=== PATIENT | female | born 1945 | race Caucasian/White ===

== ENCOUNTER 2018-08-29 20:56 | Inpatient (IN) | payer OTHER ==
--- NOTE | 2018-08-29 21:05 | EDPHY ---
H & P Stated Complaint: Seen at urgent care, concerned for a-fib, dx w/upper respiratory - Personal History Tetanus Vaccine Date: 2018 - Medical/Surgical History Hx Asthma: No Hx Chronic Respiratory Disease: No Hx Diabetes: No Hx Cardiac Disease: Yes Hx Renal Disease: No Hx Cirrhosis: No Hx Alcoholism: No Hx HIV/AIDS: No Hx Splenectomy or Spleen Trauma: No Other PMH: A-fib, - Social History Smoking Status: Never smoked Time Seen by Provider: 08/29/18 21:04 Constitutional: Initial Vital Signs Temperature (C) 36.7 C 08/29/18 20:58 Heart Rate 93 08/29/18 20:58 Respiratory Rate 19 08/29/18 20:58 Blood Pressure 187/89 H 08/29/18 20:58 O2 Sat (%) 95 08/29/18 20:58 O2 Delivery Mode [Post Nasal Cannula Procedure 4th] O2 Delivery Mode [Post Nasal Cannula Procedure 3rd] O2 Delivery Mode [Post Nasal Cannula Procedure 2nd] O2 Delivery Mode [Post Non-Rebreather Mask Procedure 1st] O2 Delivery Mode [Procedural Non-Rebreather Mask 1st] O2 Delivery Mode [.Immediate Non-Rebreather Mask Pre-Procedure] O2 Delivery Mode Room Air O2 (L/minute) [Post Procedure 3 4th] O2 (L/minute) [Post Procedure 3 3rd] O2 (L/minute) [Post Procedure 4 2nd] O2 (L/minute) [Post Procedure 15 1st] O2 (L/minute) [Procedural 1st] 15 O2 (L/minute) [.Immediate Pre- 15 Procedure] O2 (L/minute) 2 Allergies/Adverse Reactions: Penicillins Allergy (Verified 08/29/18 21:00) pneumococcal vaccine Allergy (Verified 08/29/18 21:00) Sulfa (Sulfonamide Antibiotics) Allergy (Verified 08/29/18 21:00) Home Medications: Medication Instructions Recorded Metoprolol ER-Hctz 100-12.5 mg 08/29/18 Tikosyn 0.5 MG (*) 08/29/18 Xarelto 08/29/18 Medical Decision Making ED Course/Re-evaluation: CHIEF COMPLAINT: "Atrial fibrillation" HISTORY OF PRESENT ILLNESS: The patient is an anticoagulated (Xarelto) 72 y/o female with a history of atrial fibrillation requiring cardioversions and ablations complaining of being in "atrial fibrillation" today. The patient recently flew from [place] to [place] Today she noticed that she was shaky and felt like she was in atrial fibrillation today. She went to an urgent care, had a chest x-ray, and was diagnosed with an upper respiratory virus. However, since she felt like she was still in atrial fibrillation, she decided to present to the emergency department. Due to her atrial fibrillation she has had 3 cardioversions and ablations, which resolved the a-fib. She is currently on Tikosyn, Metoprolol and Xarelto to control the atrial fibrillation. No fever, headache, body aches, lightheadedness, chest pain, shortness of breath, cough, abdominal pain, urinary or bowel complaints, numbness, paresthesias. REVIEW OF SYSTEMS: A comprehensive 10 system review of systems is otherwise negative aside from elements mentioned in the history of present illness and medical decision making. PHYSICAL EXAM: HR, BP, O2 Sat, RR. Temp noted General Appearance: Alert, well hydrated, appropriate, and non-toxic appearing. Head: Atraumatic without scalp tenderness or obvious injury Eyes: Pupils equal, round, reactive to light and accommodation, EOMI, no trauma , no injection. Ears: Clear bilaterally, no perforation, normal landmarks Nose: Atraumatic, no rhinorrhea, clear. Throat: There is no erythema or exudates, no lesions, normal tonsils, mucus membranes moist. Neck: Supple, 2+ carotid upstroke, nontender, no lymphadenopathy. Respiratory: No retractions, no distress, no wheezes, and no accessory muscle use. Lungs are clear to auscultation bilaterally. Cardiovascular: Irregularly irregular rhythm consistent with A-fib, no murmurs , rubs, or gallops. Bilateral carotid, radial, dorsalis pedis, and posterior tibial pulses intact. Good capillary refill all extremities. Gastrointestinal: Abdomen is soft, nontender, non-distended, no masses, no rebound, no guarding, no peritoneal signs. Musculoskeletal: Normal active ROM of all extremities, atraumatic. Neurological: Alert, appropriate, and interactive. The patient has normal DTRs and non-focal cranial nerves, motor, sensory, and cerebellar exam. Skin: No rashes, good turgor, no nodules on palpation. Past medical history: Atrial fibrillation Past surgical history: Cardioversion, cardiac ablation Family history: Denies Social history: Visiting son in [place], at bedside, retired DIAGNOSTICS/PROCEDURES/CRITICAL CARE TIME: EKG: The 12 lead EKG was interpreted by myself as intermittent atrial fibrillation/flutter with a rate of 110. See hard copy and/or "tracemaster" electronic copy for interpretation. Procedure: Electrical Cardioversion. Indication: Dysrhythmia. Risks, benefits, alternatives discussed with the patient and consent obtained. The patient was on a continuous nuclear monitoring technician, with airway equipment at the bedside. The patient was on continuous pulse oximetry and passive CO2 monitor. The cardioversion was performed with 200 joules biphasic synchronized current. The cardioversion was successful. The patient tolerated the procedure well with no complications. The procedure was performed by myself. Procedure: Conscious sedation. Indication: Electrical Cardioversion for atrial fibrillation The patient is an appropriate candidate to tolerate procedural sedation. The patient's vitals signs and mental status are appropriate. The risks, benefits and alternatives of the sedation were discussed with the patient. The patient is ASA classification 1. The patient's Mallampati airway score was 1 and the patient did meet the 3-3-2 airway measurements. A time out was completed. The patient was sedated with 20mg IV Ketamine and 70mg IV Propofol. The patient was monitored with continuous pulse oximetry, monitoring tech and end tidal CO2. There were no complications and no significant hypoxemia. I performed both the sedation and the procedure. The total time I spent at the bedside during the procedural sedation was 20 minutes. The patient was examined after the procedural sedation and has returned to their pre-sedation baseline with normal vital signs and a normal examination. Post cardioversion EKG: The 12 lead EKG was interpreted by myself as as sinus rhythm with a rate of 92. See hard copy and/or "tracemaster" electronic copy for interpretation. DIFFERENTIAL DIAGNOSIS: The differential diagnosis for the patient's irregularly irregular tachycardia included but was not limited to various causes of sinus tachycardia such as dehydration and medicines, SVT, atrial flutter, atrial fibrillation, pulmonary causes. MEDICAL DECISION MAKING: The patient is an anticoagulated (Xarelto) 72 y/o female with a history of atrial fibrillation requiring cardioversions and ablations presenting with being in "atrial fibrillation" today. The patient recently flew from [place] to [place] Today she noticed that she was shaky and felt like she was in atrial fibrillation today. Due to her atrial fibrillation she has had 3 cardioversions and ablations, which resolved the a-fib. She is currently on Tikosyn, Metoprolol and Xarelto to control the atrial fibrillation. On exam she has an irregularly irregular heart rate consistent with atrial fibrillation. Labs and EKG ordered. I discussed the risks and benefits associated with a cardioversion. She is a good candidate for cardioversion as she is anticoagulated and has been successfully cardioverted in the past. She is comfortable with plan for cardioversion. 2113: I interpreted patient's EKG as intermittent atrial fibrillation/flutter with a rate of 110. Patient may not need a cardioversion since the afib/flutter is intermittent. 2119: Reassessed patient and discussed EKG findings. She reports that she feels the same as when she is in atrial fibrillation. I have offered her admission, but she would like to have the cardioversion. 2124: Patient has been transferred to trauma room 1 for the electrical cardioversion. 2134: BP: 172/72, HR: 110, O2Sats: 100%. 2137: Shock delivered. Patient has a good CO2 wave form and a decreased heart rate of 91. 5mg IV Lopressor administered. 2141: I interpreted patient's EKG as sinus rhythm with a rate of 92 2146: Patient is becoming more awake after the cardioversion. She states she is feeling better. We will continue to observer her. 2156: Reassessed patient after cardioversion. She continues to feel better. HR: 72, P: 137/54. Patient's labs are also unremarkable. We will road test her to see if she is ready to be discharged. 2229: Patient continues to drop her O2Sats into the high 80's when she walks. I suspect this is due to her upper respiratory infection. If her O2Sats do not improve she will need to be admitted. 2230: Patient care turned over to Dr. Hernandez at shift change. (Cash Castillo) 2315- Patient persistently hypoxic here in the emergency department. She is requiring 2 L of oxygen to maintain saturations in the low 90s. As she feels mildly short of breath. I consulted with Dr. Joseph and we will admit the patient. (Carmela Hernandez) - Data Points Laboratory Results: Laboratory Results 08/29/18 21:15 08/29/18 21:15 08/29/18 08/29/18 08/29/18 21:20 21:15 21:15 WBC 7.94 10^3/uL 10^3/uL (3.80-9.50) RBC 4.12 10^6/uL L 10^6/uL (4.18-5.33) Hgb 13.4 g/dL g/dL (12.6-16.3) Hct 38.3 % % (38.0-47.0) MCV 93.0 fL fL (81.5-99.8) MCH 32.5 pg pg (27.9-34.1) MCHC 35.0 g/dL g/dL (32.4-36.7) RDW 12.5 % % (11.5-15.2) Plt Count 260 10^3/uL 10^3/uL (150-400) MPV 9.5 fL fL (8.7-11.7) Neut % (Auto) 60.4 % % (39.3-74.2) Lymph % (Auto) 29.6 % % (15.0-45.0) [place] % (Auto) 8.6 % % (4.5-13.0) Eos % (Auto) 0.4 % L % (0.6-7.6) Baso % (Auto) 0.5 % % (0.3-1.7) Nucleat RBC Rel Count 0.0 % % (0.0-0.2) Absolute Neuts (auto) 4.80 10^3/uL 10^3/uL (1.70-6.50) Absolute Lymphs (auto) 2.35 10^3/uL 10^3/uL (1.00-3.00) Absolute Monos (auto) 0.68 10^3/uL 10^3/uL (0.30-0.80) Absolute Eos (auto) 0.03 10^3/uL 10^3/uL (0.03-0.40) Absolute Basos (auto) 0.04 10^3/uL 10^3/uL (0.02-0.10) Absolute Nucleated RBC 0.00 10^3/uL 10^3/uL (0-0.01) Immature Gran % 0.5 % % (0.0-1.1) Immature Gran # 0.04 10^3/uL 10^3/uL (0.00-0.10) Sodium 131 mEq/L L mEq/L (135-145) Potassium 3.5 mEq/L mEq/L (3.5-5.2) Chloride 94 mEq/L L mEq/L (97-110) Carbon Dioxide 24 mEq/l mEq/l (22-31) Anion Gap 13 mEq/L mEq/L (6-14) BUN 13 mg/dL mg/dL (7-23) Creatinine 0.6 mg/dL mg/dL (0.6-1.0) Estimated GFR > 60 Glucose 128 mg/dL H mg/dL (70-100) Calcium 9.8 mg/dL mg/dL (8.5-10.4) POC Troponin I 0.01 ng/mL ng/mL (0.00-0.08) NT-Pro-B Natriuret Pep 08/29/18 21:12 WBC RBC Hgb Hct MCV MCH MCHC RDW Plt Count MPV Neut % (Auto) Lymph % (Auto) [place] % (Auto) Eos % (Auto) Baso % (Auto) Nucleat RBC Rel Count Absolute Neuts (auto) Absolute Lymphs (auto) Absolute Monos (auto) Absolute Eos (auto) Absolute Basos (auto) Absolute Nucleated RBC Immature Gran % Immature Gran # Sodium Potassium Chloride Carbon Dioxide Anion Gap BUN Creatinine Estimated GFR Glucose Calcium POC Troponin I NT-Pro-B Natriuret Pep Pending Medications Given: Discontinued Medications Albuterol/Ipratropium (Duoneb) 3 ml IH EDNOW ONE Stop: 08/29/18 22:39 Last Admin: 08/29/18 22:39 Dose: 3 ml Ketamine HCl (Ketamine) 20 mg IVP EDNOW ONE Stop: 08/29/18 22:19 Last Admin: 08/29/18 21:25 Dose: 20 mg Metoprolol Tartrate (Lopressor Injection) 5 mg IVP EDNOW ONE Stop: 08/29/18 22:22 Last Admin: 08/29/18 21:25 Dose: 5 mg Propofol (Diprivan) 70 mg IVP EDNOW ONE Stop: 08/29/18 22:20 Last Admin: 08/29/18 21:25 Dose: 70 mg Point of Care Test Results: Chemistry 08/29/18 21:20 POC Troponin I 0.01 ng/mL ng/mL (0.00-0.08) Departure - Departure Disposition: [facility] Inpatient Acute Clinical Impression: Encounter for cardioversion procedure, Hypoxia Atrial fibrillation Qualifiers: Atrial fibrillation type: unspecified Qualified Code(s): I48.91 - Unspecified atrial fibrillation Atrial flutter Qualifiers: Atrial flutter type: unspecified Qualified Code(s): I48.92 - Unspecified atrial flutter Condition: Fair Instructions: Atrial Flutter (ED), A-fib (Atrial Fibrillation) (ED), Cardioversion (DC) Additional Instructions: 1. Follow-up with your primary doctor within 72 hours. 2. Return to the Emergency Department for fever, chest pain, shortness of breath , increasing pain or other worsening of condition. 3. Follow up with a county agent for further testing, as soon as possible, within one week. Referrals: JT JOHNSON MD [Other] - As per Instructions Report Scribed for: Cash Castillo Report Scribed by: Gilda Cordero Date of Report: 08/29/18 Time of Report: 21:06
[2018-08-29] MEDS ORDERED: KETAMINE 200 MG/20 ML VIAL ONE (21:30)
[2018-08-29] MEDS ORDERED: PROPOFOL 200 MG/20 ML VIAL ONE (21:31)
[2018-08-29 21:32] LABS: PLATELET COUNT 260 10^3/uL (150-400)
[2018-08-29] MEDS ORDERED: METOPROLOL TARTRATE 5 MG/5 ML INJ ONE (21:39)
[2018-08-29] MEDS ORDERED: KETAMINE 500 MG/10 ML VIAL IVP ONE (22:18)
[2018-08-29] MEDS ORDERED: PROPOFOL 200 MG/20 ML VIAL IVP ONE (22:19)
[2018-08-29] MEDS ORDERED: METOPROLOL TARTRATE 5 MG/5 ML INJ IVP ONE (22:21)
[2018-08-29] MEDS ORDERED: IPRATROPIUM/ALBUTEROL 3 ML DEYVIAL ONE (22:36)
[2018-08-29] MEDS ORDERED: IPRATROPIUM/ALBUTEROL 3 ML DEYVIAL IH ONE (22:38)
[2018-08-29] MEDS ORDERED: ACETAMINOPHEN 325 MG TAB PO PRN (23:13)
[2018-08-29] MEDS ORDERED: ONDANSETRON DISINTEGRATING 4 MG TAB PO PRN (23:13)
[2018-08-29] MEDS ORDERED: ALBUTEROL 3 ML DEYVIAL IH PRN (23:13)
[2018-08-29] MEDS ORDERED: ONDANSETRON 4 MG/2 ML VIAL IVP PRN (23:13)
--- NOTE | 2018-08-29 23:53 | PDGENHP ---
History and Physical - Chief Complaint Palpitations, shortness of breath - History of Present Illness 72 yo F w/ hx of AF presents with shortness of breath and palpitations. The patient has had a URI for several weeks. She has been treated with a course of azithromycin over the last 5 days. Today she noted palpitations, malaise, and fatigue, which are usually signs that she has converted to AF. She was noted to be in AF here and cardioverted back to NSR. She is anticoagulated with Xarelto. After cardioversion she feels improved but remains mildly hypoxic. I hear mild expiratory wheezing during my lung exam. She was started on prednisone earlier today for presumed RAD exacerbation. She has no formal prior hx of asthma. Case discussed with ED physician Dr. Hernandez; records reviewed and summarized above. History Information - Allergies/Home Medication List Allergies/Adverse Reactions: Penicillins Allergy (Verified 08/29/18 21:00) pneumococcal vaccine Allergy (Verified 08/29/18 21:00) Sulfa (Sulfonamide Antibiotics) Allergy (Verified 08/29/18 21:00) Home Medications: Metoprolol ER-Hctz 100-12.5 mg 08/29/18 [Last Taken Unknown] Tikosyn 0.5 MG (*) 08/29/18 [Last Taken Unknown] Xarelto 08/29/18 [Last Taken Unknown] I have personally reviewed and updated: family history, medical history - Past Medical History atrial fibrillation - Surgical History Reports: hernia repair Additional surgical history: - Family History Positive for: CAD - Social History Smoking Status: Never smoked Review of Systems Review of Systems: ROS: 10pt was reviewed & negative except for what was stated in HPI & below Physical Exam Physical Exam: Temp Pulse Resp BP Pulse Ox 36.9 C 83 16 154/64 H 94 08/29/18 21:50 08/29/18 23:10 08/29/18 23:10 08/29/18 23:10 08/29/18 23:10 Constitutional: no apparent distress, not in pain Eyes: PERRL, EOMI Ears, Nose, Mouth, Throat: moist mucous membranes, no oral mucosal ulcers Cardiovascular: regular rate and rhythym, no murmur, rub, or gallop Respiratory: no respiratory distress, expiratory wheeze Gastrointestinal: normoactive bowel sounds, soft, non-tender abdomen Skin: warm, normal color Neurologic: AAOx3, CN II-XII Intact Psychiatric: interacting appropriately, not anxious Lab Data & Imaging Review 08/29/18 21:15 08/29/18 21:15 WBC 7.94 10^3/uL (3.80-9.50) 08/29/18 21:15 RBC 4.12 10^6/uL (4.18-5.33) L 08/29/18 21:15 Hgb 13.4 g/dL (12.6-16.3) 08/29/18 21:15 Hct 38.3 % (38.0-47.0) 08/29/18 21:15 MCV 93.0 fL (81.5-99.8) 08/29/18 21:15 MCH 32.5 pg (27.9-34.1) 08/29/18 21:15 MCHC 35.0 g/dL (32.4-36.7) 08/29/18 21:15 RDW 12.5 % (11.5-15.2) 08/29/18 21:15 Plt Count 260 10^3/uL (150-400) 08/29/18 21:15 MPV 9.5 fL (8.7-11.7) 08/29/18 21:15 Neut % (Auto) 60.4 % (39.3-74.2) 08/29/18 21:15 Lymph % (Auto) 29.6 % (15.0-45.0) 08/29/18 21:15 [place] % (Auto) 8.6 % (4.5-13.0) 08/29/18 21:15 Eos % (Auto) 0.4 % (0.6-7.6) L 08/29/18 21:15 Baso % (Auto) 0.5 % (0.3-1.7) 08/29/18 21:15 Nucleat RBC Rel Count 0.0 % (0.0-0.2) 08/29/18 21:15 Absolute Neuts (auto) 4.80 10^3/uL (1.70-6.50) 08/29/18 21:15 Absolute Lymphs (auto) 2.35 10^3/uL (1.00-3.00) 08/29/18 21:15 Absolute Monos (auto) 0.68 10^3/uL (0.30-0.80) 08/29/18 21:15 Absolute Eos (auto) 0.03 10^3/uL (0.03-0.40) 08/29/18 21:15 Absolute Basos (auto) 0.04 10^3/uL (0.02-0.10) 08/29/18 21:15 Absolute Nucleated RBC 0.00 10^3/uL (0-0.01) 08/29/18 21:15 Immature Gran % 0.5 % (0.0-1.1) 08/29/18 21:15 Immature Gran # 0.04 10^3/uL (0.00-0.10) 08/29/18 21:15 Sodium 131 mEq/L (135-145) L 08/29/18 21:15 Potassium 3.5 mEq/L (3.5-5.2) 08/29/18 21:15 Chloride 94 mEq/L (97-110) L 08/29/18 21:15 Carbon Dioxide 24 mEq/l (22-31) 08/29/18 21:15 Anion Gap 13 mEq/L (6-14) 08/29/18 21:15 BUN 13 mg/dL (7-23) 08/29/18 21:15 Creatinine 0.6 mg/dL (0.6-1.0) 08/29/18 21:15 Estimated GFR > 60 08/29/18 21:15 Glucose 128 mg/dL (70-100) H 08/29/18 21:15 Calcium 9.8 mg/dL (8.5-10.4) 08/29/18 21:15 POC Troponin I 0.01 ng/mL (0.00-0.08) 08/29/18 21:20 NT-Pro-B Natriuret Pep 153 pg/mL (0-125) H 08/29/18 21:12 Visualized and Interpreted Chest x-ray results: Yes Chest X-Ray results: no infiltrate Visualized and Interpreted EKG results: Yes EKG Interpretation: Positive for: normal sinsus rhythm Assessment & Plan Assessment: 72 yo F w/ hx of AF presents w/ hypoxia due to RAD exacerbation and AF s/p cardioversion. Plan: 1. Paroxysmal Atrial fibrillation - The patient is very symptomatic when she converts to AF. She presented today with fatigue, malaise, and palpitations, which are her usual symptoms. She is on Tikosyn and metoprolol to prevent these issues. She is anticoagulated with Xarelto. I suspect hypoxia due to RAD exacerbation and travel to altitude triggered her AF. - Observe in PCU - Now s/p cardioversion and in NSR - Continue home medications pending reconciliation - Monitor on telemetry 2. URI w/ RAD exacerbation - Patient has no formal asthma history but does report prior need for steroids during URI. She has had a URI for several weeks and demonstrates expiratory wheezing during my examination. CXR (personally reviewed/interpreted) does nto demonstrates any infiltrates. - S/p 5 days azithromycin - Prednisone 40 mg qD - Albuterol PRN 3. Hypoxia - Mild, likely due to RAD and travel [place] - Acute management as above - Continue O2 PRN - Incentive spirometry ordered 4. Hyponatremia - Mild, unclear etiology; repeat BMP in the AM. Diet - Regular Code - Full Ppx - Xarelto Dispo - Admit under observation status
[2018-08-30 04:27] LABS: PLATELET COUNT 263 10^3/uL (150-400)
[2018-08-30] MEDS: predniSONE 20 MG TAB PO SCH (09:34)
[2018-08-30] MEDS ORDERED: ALBUTEROL 60 PUFFS/8 GM MDI IH PRN (11:44)
--- NOTE | 2018-08-30 11:49 | ASMTCMCOM ---
CM Note CM Note Notes: Pts case discussed in tx rounds. Pt is a 72 y/o female admitted for SOB. Pt will most likely d/c independent when medically stable. No therapies ordered at this time. CM available for changes. Plan: Independent Date Signed: 08/30/2018 11:49 AM Electronically Signed By:TERRENCE Manning
[2018-08-30] MEDS: RIVAROXABAN 20 MG TAB PO SCH (12:55)
[2018-08-30] MEDS: METOPROLOL SUCCINATE XR 100 MG TAB PO SCH (12:55)
[2018-08-30] MEDS: DULoxetine 30 MG CAP PO SCH (12:56)
[2018-08-30] MEDS: DOFETILIDE 0.25 MG CAP PO SCH ×2 (12:56→21:01)
[2018-08-30] MEDS: MAGNESIUM OXIDE 400 MG TAB PO SCH (12:57)
--- NOTE | 2018-08-30 15:55 | HOSPPROG ---
Hospitalist Progress Note Assessment/Plan: 72 yo F w/ hx of AF presents w/ hypoxia due to RAD exacerbation and AF s/p cardioversion. #Acute hypoxia: D/t viral illness/bronchospasm and altitude. Very dyspneic with minimal movement. Continue O2 PRN. #URI w/ RAD exacerbation: No pna on cxr (personally reviewed). S/p 5 days azithro. Continue pred 40 qd. Schedule xopanex neb q8. #pAF: S/p cardioversion in ED, remained in sinus all day. Continue home tikosyn , metoprolol. She is anticoagulated with xarelto. #Hyponatremia: Mild, resolved. #Depression: Home meds Diet - Regular Code - Full Ppx - Xarelto Dispo - Switch to inpatient for ongoing hypoxia and symptoms. ADD tomorrow Subjective: Very short of breath when going to bathroom. Resp rate went up to almost 40 with some hypoxia. No chest pain. No fevers. Some cough. No afib on tele. Objective: Vital Signs Temp Pulse Resp BP Pulse Ox 36.7 C 84 40 H 155/72 H 89 L 08/30/18 11:01 08/30/18 11:01 08/30/18 14:29 08/30/18 11:01 08/30/18 14:29 Laboratory Results 08/30/18 03:20 08/30/18 03:20 08/29/18 08/30/18 08/31/18 05:59 05:59 05:59 Intake Total 500 Balance 500 - Physical Exam Constitutional: no apparent distress, appears nourished, not in pain Eyes: PERRL, anicteric sclera, EOMI Ears, Nose, Mouth, Throat: moist mucous membranes, hearing normal, ears appear normal, no oral mucosal ulcers Cardiovascular: regular rate and rhythym, no murmur, rub, or gallop, No edema Respiratory: no respiratory distress, no rales or rhonchi, clear to auscultation Gastrointestinal: normoactive bowel sounds, soft, non-tender abdomen, no palpable masses Genitourinary: no bladder fullness, no bladder tenderness, no renal bruits Skin: no rashes or abrasions, no fluctuance, no induration Musculoskeletal: full muscle strength, no muscle tenderness, normal joint ROM Neurologic: AAOx3, sensation intact bilaterally Psychiatric: interacting appropriately, not anxious, not encephalopathic, thought process linear ICD10 Worksheet Patient Problems: Problems Problem Status Onset Atrial fibrillation Acute Atrial flutter Acute Encounter for cardioversion procedure Acute Hypoxia Acute
[2018-08-30] MEDS ORDERED: BENZONATATE 100 MG CAP PO PRN (16:02)
[2018-08-30] MEDS ORDERED: IPRATROPIUM/ALBUTEROL 3 ML DEYVIAL IH SCH (16:30)
[2018-08-30] MEDS: LEVALBUTEROL 1.25 MG/3 ML DEYVIAL IH SCH (16:40)
[2018-08-30] MEDS: GABAPENTIN 300 MG CAP PO SCH ×2 (17:11→21:01)
--- NOTE | 2018-08-30 19:21 | CPEKG ---
Test Reason : OPEN Blood Pressure : / mmHG Vent. 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
--- NOTE | 2018-08-30 19:21 | CPEKG ---
Test Reason : OPEN Blood Pressure : / mmHG Vent. Rate : 092 BPM Atrial Rate : 091 BPM P-R Int : 165 ms QRS Dur : 085 ms QT Int : 391 ms P-R-T Axes : -33 -24 058 degrees QTc Int : 484 ms Sinus rhythm Borderline left axis deviation Nonspecific T abnrm, anterolateral leads Confirmed by Cash Castillo ([id number]) on 08/30/2018 7:20:32 PM Referred By: Cash Castillo Confirmed By:Cash Castillo
[2018-08-30] MEDS ORDERED: SPIRONOLACTONE 25 MG TAB PO SCH (21:00)
[2018-08-31] MEDS: LEVALBUTEROL 1.25 MG/3 ML DEYVIAL IH SCH ×2 (04:29→06:07)
[2018-08-31] MEDS ORDERED: CALCIUM CARBONATE 500 MG TAB PO SCH (09:00)
[2018-08-31] MEDS ORDERED: POTASSIUM CL 20 MEQ TAB PO SCH (09:00)
[2018-08-31] MEDS: RIVAROXABAN 20 MG TAB PO SCH (09:28)
[2018-08-31] MEDS: DOFETILIDE 0.25 MG CAP PO SCH (09:29)
[2018-08-31] MEDS: DULoxetine 30 MG CAP PO SCH (09:29)
[2018-08-31] MEDS: GABAPENTIN 300 MG CAP PO SCH (09:29)
[2018-08-31] MEDS: predniSONE 20 MG TAB PO SCH (09:29)
--- NOTE | 2018-08-31 10:24 | PDMN ---
Medical Necessity Medical necessity: Change to IP, as of 08/30/18, per & MCG PG-RF Respiratory Failure; los >2 mn for ongoing management of URI w/RAD exacerbation, tachypnea ( RR 40), dyspnea on exertion & acute hypoxia (requiring 2.5L to maintain sats >90 %) s/p cardioversion for AFIB; requiring further monitoring & respiratory supportive care
[2018-08-31 11:00] VITALS: BP 144/73
--- NOTE | 2018-08-31 11:53 | PDDCSUM ---
Discharge Summary Discharge Summary: Date of Admission: 08/29/2018 Date of Discharge: 08/31/2018 Studies: none Discharge Diagnoses: 1. Acute hypoxia 2. Upper respiratory viral infection with bronchospasm 3. Paroxysmal atrial fibrillation 4. Hyponatremia, mild 5. Depression Brief Hospital Course: 72 yo F w/ hx of pAF presented with shortness of breath. She was being treated for a viral infection and just completed a course of azithromycin but remained symptomatic. CXR from the ED the day prior was without pneumonia. She was found to be mildly hypoxic and in rapid atrial fibrillation. She was electrically cardioverted in the ED and admitted for management of her hypoxia. She received steroids and bronchodilators and clinically improved. She remained in sinus rhythm. She was successfully weaned from supplemental oxygen. Her home tikosyn, metoprolol, and xarelto were continued. She is to complete a prednisone taper and has an albuterol rescue inhaler (she already had a prescription for these). Medications: Please refer to EMR for complete list. No prescriptions were given. Follow Up Plan: 1. PCP visit in 1 week Physical Exam: Vitals reviewed, afebrile. Alert and oriented, rrr, lungs clear, abdomen soft, no leg edema, no rashes.
--- NOTE | 2018-08-31 12:32 | ASMTLACE ---
LACE Length of stay for Answers: Less than 1 day current admission Comorbidities - select Answers: Cerebrovascular disease all that apply (CVA, TIA, aneurysms, vasc ular dementia) Other Notes: AFib # of Emergency department Answers: 1-2 visits in the last 6 months Score: 3 Date Signed: 08/31/2018 12:31 PM Electronically Signed By:Akilah Parker RN
--- NOTE | 2018-08-31 12:33 | ASMTDCNOTE ---
Case Management Discharge Discharge Order Complete? Answers: Yes Patient to Obtain Answers: via Family Medications Transportation Arranged Answers: Family/Friends Discharge Comments Notes: Medically cleared for independent discharge to home. CM available should needs arise. Date Signed: 08/31/2018 12:33 PM Electronically Signed By:Akilah Parker RN
[2018-08-31] MEDS: MAGNESIUM OXIDE 400 MG TAB PO SCH (13:18)
[2018-08-31] MEDS: METOPROLOL SUCCINATE XR 100 MG TAB PO SCH (13:18)
== END 2018-08-31 13:20 | disposition home or self-care (01) | DRG 202 ==
LOC: F2W 23:59 → OBSVTOIN 08-30 16:05
PROVIDERS: ADMIT Student in an Organized Health Care Education/Training Program; ATTEND Student in an Organized Health Care Education/Training Program
PROC: 5A2204Z Restoration of Cardiac Rhythm, Single (ICD-10-PCS; principal; 2018-08-29)
DX: J45.901 Unspecified asthma with (acute) exacerbation (principal); E87.1 Hypo-osmolality and hyponatremia; R09.02 Hypoxemia; I48.0 Paroxysmal atrial fibrillation; J06.9 Acute upper respiratory infection, unspecified; F32.9 Major depressive disorder, single episode, unspecified; Z88.0 Allergy status to penicillin
CPT/HCPCS: 84484-ER; 96374; G0378; J2704; J7512

== ENCOUNTER → 2018-08-29 | Outpatient (CLI) | payer OTHER | LOC: GIMAGING 17:04 | PROVIDERS: ATTEND Nurse Practitioner Family | DX: J98.4 Other disorders of lung (principal) | CPT/HCPCS: 71046-PO ==

== ENCOUNTER 2018-09-02 10:54 | Emergency (ER) | payer OTHER ==
--- NOTE | 2018-09-02 11:26 | EDPHY ---
H & P Stated Complaint: Feels like she is in afib Time Seen by Provider: 09/02/18 11:02 HPI/ROS: CHIEF COMPLAINT: Irregular heartbeat HISTORY OF PRESENT ILLNESS: 72-year-old female with atrial fibrillation on Xarelto presents with an irregular heartbeat. Onset of URI symptoms 1 week ago. She received a course of Zithromax, which she has completed. She is currently on prednisone for bronchospasm. Persistent cough and wheezing. Prescribed albuterol inhaler, but is not using it. Onset of irregular heartbeat last night. This morning the irregular heartbeat persisted and she was concerned about possible recurrent atrial fibrillation. No shortness of breath or chest pain. No fever. REVIEW OF SYSTEMS: complete 10 point ROS reviewed and is negative except for the noted elements in the HPI - Personal History Current Tetanus/Diphtheria Vaccine: Yes Current Tetanus Diphtheria and Acellular Pertussis (TDAP): Yes Tetanus Vaccine Date: 2018 - Medical/Surgical History Hx Asthma: No Hx Chronic Respiratory Disease: No Hx Diabetes: No Hx Cardiac Disease: Yes Hx Renal Disease: No Hx Cirrhosis: No Hx Alcoholism: No Hx HIV/AIDS: No Hx Splenectomy or Spleen Trauma: No Other PMH: A-fib, 3 cardioversions & 1 ablation, TIA 2/2 a-fib, hernia repair - Social History Smoking Status: Former smoker Additional Social History: , visiting from out of town - Physical Exam Exam: General Appearance: Alert, pleasant Eyes: Pupils equal and round, no conjunctival pallor or injection ENT, Mouth: Mucous membranes moist Neck: Normal inspection Respiratory: Scattered expiratory wheezing Cardiovascular: Regular rate and rhythm, occasional ectopic beat Gastrointestinal: Abdomen is soft and nontender Neurological: A&O, nonfocal, normal gait Skin: Warm and dry Extremities: Normal inspection Psychiatric: Mood and affect normal Constitutional: Initial Vital Signs Temperature (C) 37 C 09/02/18 10:56 Heart Rate 84 09/02/18 10:56 Respiratory Rate 16 09/02/18 10:56 Blood Pressure 203/80 H 09/02/18 10:56 O2 Sat (%) 97 09/02/18 10:56 O2 Delivery Mode Room Air Allergies/Adverse Reactions: Penicillins Allergy (Verified 08/30/18 08:18) Hives pneumococcal vaccine Allergy (Verified 08/30/18 08:18) Swelling in Arm Sulfa (Sulfonamide Antibiotics) Allergy (Verified 08/30/18 08:18) Body Aches Home Medications: Medication Instructions Recorded Dofetilide [Tikosyn 0.25 MG (*)] 0.25 mg PO BID 08/29/18 Metoprolol Succinate Xr [Toprol Xl 100 mg PO DAILY@12 08/29/18 100 mg (*)] Rivaroxaban [Xarelto] 20 mg PO DAILY 08/29/18 Acetaminophen [Tylenol ES 500 mg 1,000 mg PO DAILY PRN 08/30/18 (*)] Albuterol [Proventil Inhaler HFA 1 - 2 puffs IH Q4H PRN 08/30/18 (*)] C/E/Zn/Cu/OM3/DHA/EPA/LUT/ZEAX 1 each PO DAILY 08/30/18 [Preservision Areds 2 Softgel] Calcium Carbonate [Oyster Shell 500 mg PO DAILY 08/30/18 Calcium 500 mg (*)] DULoxetine [Cymbalta 30 MG (*)] 30 mg PO DAILY 08/30/18 Gabapentin [Neurontin 300 MG (*)] 600 mg PO TID 08/30/18 Herbals/Supplements -Info Only 1 each PO DAILY 08/30/18 Magnesium Oxide [Magnesium Oxide 400 mg PO DAILY@12 08/30/18 400 mg (*)] Multivitamins [Multivitamin (*)] 1 each PO DAILY 08/30/18 [place]-3 Fatty Acids [Fish Oil 1000 1,000 mg PO DAILY 08/30/18 mg (*)] Potassium Cl [Klor-Con 20 meq (*)] 20 meq PO DAILY 08/30/18 Spironolactone [Aldactone 25 MG 25 mg PO HS 08/30/18 (*)] predniSONE 20 mg PO DAILY tablet 08/31/18 Medical Decision Making - Diagnostics EKG Interpretation: EKG interpreted by me reveals normal sinus rhythm, rate 77, PACs, no ST or T segment changes. Interpretation: Otherwise normal EKG. ED Course/Re-evaluation: This patient presents with symptomatic PACs. This is most likely related to her current illness and possibly secondary to prednisone. Discussion with the patient, she is very happy that she is not in atrial fibrillation. We discussed the use of albuterol, which would likely increase the PACs, but help the cough and bronchospasm. She declines use of albuterol. No evidence of pneumonia or other acute serious cardiopulmonary problem. Safe and stable for discharge home. She will return for worsening symptoms or any concerns. BP 154 /88 on discharge. f/u PCP for ongoing BP management. Differential Diagnosis: Includes though is not limited to atrial fibrillation, SVT, ventricular dysrhythmia, pneumonia, ACS - Data Points Point of Care Test Results: Chemistry 09/02/18 11:09 POC Troponin I 0.00 ng/mL ng/mL (0.00-0.08) Departure - Departure Disposition: Home, Routine, Self-Care Clinical Impression: PAC (premature atrial contraction) Condition: Good Instructions: Acute Bronchitis (ED), Bronchospasm (ED), Premature Atrial Contractions (ED) Additional Instructions: Drink plenty of fluids. Return for worsening symptoms, shortness of breath or any concerns. Referrals: GLADIS JOHNSON MD [Other] - As per Instructions
[2018-09-02 11:36] VITALS: BP 154/88
--- NOTE | 2018-09-09 08:24 | CPEKG ---
Test Reason : OPEN Blood Pressure : / mmHG Vent. Rate : 077 BPM Atrial Rate : 079 BPM P-R Int : 165 ms QRS Dur : 080 ms QT Int : 381 ms P-R-T Axes : 004 -27 058 degrees QTc Int : 432 ms Sinus rhythm Borderline left axis deviation Confirmed by Becky Alvarado ([id number]) on 09/09/2018 8:24:28 AM Referred By: Becky Alvarado Confirmed By:Becky Alvarado
== END 2018-09-02 11:38 | disposition home or self-care (01) ==
DX: I48.91 Unspecified atrial fibrillation (principal); J40 Bronchitis, not specified as acute or chronic; Z79.01 Long term (current) use of anticoagulants
CPT/HCPCS: 84484-ER